=== PATIENT | male | born 1960 | race Caucasian/White ===

== ENCOUNTER 2021-07-18 13:14 | Outpatient (CLI) | payer OTHER, SELFPAY ==
--- NOTE | 2021-07-18 | ECHO_ITS ---
Patient Info Name: Wu Carcamo Age: 60 years : 1960 Gender: Male Ht: 72 in Wt: 240 lbs BSA: 2.38 m2 HR: 90 bpm BP: 159 / 100 mmHg Heart Rhythm: Sinus Rhythm Technical Quality: Fair Exam Date: 07/18/2021 1:47 PM Exam Location: [facility] Patient Status: Outpatient Admit Date: 07/18/2021 Staff Ordering Physician: PHYSICIAN NOT ON STAFF, NONSTAFF Control Clerk Head: Candice Iyer RDCS Attending Provider: Elisa, Kurt KUNZ Exam Type: CA echo doppler color flow Study Info Indications - Nonrheumatic mitral (valve) insufficiency Complete two-dimensional, color flow and Doppler transthoracic echocardiogram is performed. Summary 1. Complete two-dimensional, color flow and Doppler transthoracic echocardiogram is performed. 2. Left ventricular chamber dimension is normal. 3. There is moderately increased left ventricular wall thickness. 4. Left ventricular systolic function is normal, estimated at 65-70%. 5. The left ventricular diastolic function is normal. 6. Left atrial chamber dimension is mildly enlarged. 7. There is mild aortic valve regurgitation. 8. The mitral valve has thickened leaflets. 9. There is mild to moderate mitral valve regurgitation. 10. Eccentric mitral regurgitation is seen. Possible partially torn chordae involving the anterior leaflet versus focal prolapse. Recommend MAURILIO for further anatomical evaluation. 11. There is mild pulmonic regurgitation. 12. The aortic root size at the sinus of Valsalva is borderline dilated. Left Ventricle Left ventricular chamber dimension is normal. Left ventricular systolic function is normal, estimated at 65-70%. There is moderately increased left ventricular wall thickness. The left ventricular diastolic function is normal. Right Ventricle Right ventricular chamber dimension is normal. Right ventricular systolic function is normal. Left Atria Left atrial chamber dimension is mildly enlarged. Right Atria Right atrial chamber dimension is normal. Atrial Septum Intact interatrial septum visualized by color flow imaging. Aortic Valve The aortic valve is trileaflet. There is no aortic valve sclerosis. There is no aortic valve stenosis. There is mild aortic valve regurgitation. Pulmonic Valve The pulmonic valve is normal. There is no pulmonic valve stenosis. There is mild pulmonic regurgitation. Mitral Valve The mitral valve has thickened leaflets. There is no mitral valve stenosis. There is mild to moderate mitral valve regurgitation. Eccentric mitral regurgitation is seen. Possible partially torn chordae involving the anterior leaflet versus focal prolapse. Recommend MAURILIO for further anatomical evaluation. Tricuspid Valve The tricuspid valve leaflets are normal. There is no significant tricuspid valve stenosis. There is trace tricuspid valve regurgitation. No pulmonary hypertension, estimated pulmonary arterial systolic pressure is 32 mmHg. Pericardium/Pleural The pericardium appears normal. There is no pericardial effusion. Inferior Vena Cava Normal inferior vena cava with >50% collapse upon inspiration consistent with normal right atrial pressure, 5 mmHg. Aorta The aortic root size at the sinus of Valsalva is borderline dilated. The prox ascending aorta size is normal. Left Ventricular Outflow Tract Name Value Normal
== END 2021-07-18 13:15 | disposition home or self-care (01) ==
PROVIDERS: PCP Family Medicine; Visit Provider Family Medicine
DX: I08.3 Combined rheumatic disorders of mitral, aortic and tricuspid valves (principal)
CPT/HCPCS: 93306

== ENCOUNTER → 2022-05-11 15:54 | Outpatient (CLI) | payer OTHER, SELFPAY ==
--- NOTE | ~2022-05-11 | XR_ITS ---
EXAMINATION: XR wrist LT min 3V DATE: 05/11/2022 16:16 INDICATION: Left wrist pain. TECHNIQUE: 4 views of left wrist were obtained. COMPARISON: None. FINDINGS: Bone alignment is normal. No fracture. There is mild osteoarthritis of radioscaphoid joint, triscaphe joint, lunate-capitate joint, and first carpometacarpal joint. There is moderate osteoarth ritis of lunate-hamate joint. There are loose bodies dorsal to the carpus. IMPRESSION: 1. Polyarticular osteoarthritis. Reviewed, dictated and finalized at location A.
== END ==
DX: M25.532 Pain in left wrist (principal); M15.9 Polyosteoarthritis, unspecified
CPT/HCPCS: 73110

== ENCOUNTER 2023-12-10 16:39 | Outpatient (CLI) | payer OTHER, SELFPAY ==
--- NOTE | ~2023-12-10 | XR_ITS ---
EXAMINATION: XR foot RT min 3V DATE: 12/10/2023 17:02 INDICATION: Joint pain at the right foot and ankle TECHNIQUE: Dorsoplantar, two oblique and lateral views of the right foot were obtained. COMPARISON: None. FINDINGS: Alignment is normal. No fracture. Polyarticular osteoarthritis, moderate severity at the articulation of the head of the first metatarsal and the first metatarsal sesamoids and mild at the first metatar sophalangeal articulation and multiple tarsometatarsal and interphalangeal joints. No erosions to sug gest inflammatory arthritis. Moderate-sized plantar calcaneal spur and tiny Achilles calcaneal spur. Soft tissues are unremarkable. IMPRESSION: 1. Polyarticular osteoarthritis at the right fore and midfoot, moderate severity at the first metatar vincent sesamoid articulations and otherwise mild. Reviewed, dictated and finalized at location A. IMPRESSION: 1. Polyarticular osteoarthritis at the right fore and midfoot, moderate severit y at the first metatarsal sesamoid articulations and otherwise mild.
== END 2023-12-10 16:40 ==
DX: M19.071 Primary osteoarthritis, right ankle and foot (principal)
CPT/HCPCS: 73630